=== PATIENT | female | born 1970 | race Caucasian/White ===

== ENCOUNTER → 2022-10-09 13:43 | Outpatient (BNVA) | payer OTHER, SELFPAY | PROVIDERS: PCP Internal Medicine; Visit Provider Psychiatry & Neurology Neurology | DX: R29.898 Other symptoms and signs involving the musculoskeletal system (principal); R29.810 Facial weakness | CPT/HCPCS: 99202 ==

== ENCOUNTER 2022-12-31 13:43 | Outpatient (AMB) | payer OTHER, SELFPAY ==
--- NOTE | 2022-12-31 13:46 | A.OFFVIS_ITS ---
Intake Vital Signs 12/31/22 13:50 BP 118/78 Blood Pressure Location Rt brachial Position Sitting Pulse 77 Pulse Source Pulse Oximeter Pulse Oximetry (%) 99 Oxygen Delivery Method Room Air Intake Visit Reasons: 2m follow up Left Arm weakness w facial drop-lvm Intake Note: Patient presents for 2 month follow up Allergies pregabalin [From Lyrica] Allergy (Mild, Verified 12/31/22 13:47) Unknown bactrim Allergy (Mild, Uncoded 12/31/22 13:47) Unknown Medication List - Last Reconciled 12/31/22 by Ruba Mclaughlin MD acetaminophen (Tylenol) 325 mg PO QID PRN cetirizine (All Day Allergy (cetirizine)) 10 mg PO DAILY PRN levothyroxine 25 mcg PO DAILY spironolactone 50 mg PO DAILY tramadol 50 mg PO DAILY HPI HPI Comments History of Present Illness Details 51y/o female comes for follow up of left UE pain and weakness of left hand that started Jul 2021. she did not tolerate citalopram and did not start sertraline she stopped magnesium. she could not do the stress test- she felt dizzy . No change in symptoms Her EMG is scheduled for this week. Previous history- She also had left facial weakness lasting 5 minutes. she was evaluated with CT , MRI brain, EMG, Carotid doppler which were unremarkable . she had C spine mRI which showed multilevel deg changes. she sees Dr. Askew for her neck and back pain . she is a poor historian - reports multiple problems. SHe reports headaches 3- 4/week , concussion X 2 ( 2013, 2019), sleep problems, back and neck pain ,dizziness, LBBB ? POTS , generalized weakness, depression, anxiety . 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 she feels she has noticed left side of face droop before , had a TMJ surgery but did not help. she reports numbness in her fingers. she also reports leg cramps at night that wake her up and resolves when she walks around. she was under the care of Dr. Weaver many years ago- she does not remember why she was seeing him she remembers being on cymbalta and was found stealing in a store- was arrested- was thought to be related to cymbalta . she is not under the care of a psychiatrist or a psychologist . she denies any suicidal thoughts. she denies panic attacks. She also reports not tolerating gabapentin, lyrica. [facility] Medical History Anxiety Appendicitis Arthritis Cervical abrasion Cervical spondylosis Chronic headaches Depression Facial droop Fibromyalgia HTN (hypertension) Hyperlipidemia Hypothyroidism Kidney stones Left hand weakness Memory loss Nerve entrapment Shoulder arthralgia Surgical History H/O cervical polypectomy History of History of mandibular surgery Family History Sister Brain cancer Lung cancer Cervical adenocarcinoma Mother Leukemia Heart disease Liver disease Father Heart disease Social History Alcohol intake: current Alcohol intake frequency: holidays/special occasions only Patient Tobacco Use Status: Former Tobacco user Review of Systems Neuro Reports confusion Psych Reports confusion Physical Exam Vital Signs: Last Vital Signs Pulse 77 12/31/22 13:50 BP 118/78 12/31/22 13:50 Pulse Ox 99 12/31/22 13:50 Oxygen Delivery Method Room Air 12/31/22 13:50 Const General: in distress, anxious and confusion Nutritional Appearance: overweight Orientation/consciousness: patient oriented x3 and confusion Limitations: physical limitations Neuro Other: Limited exam due to poor effort by the patient. Weakness of [place] hands Restricted range of motion neck Mallampatti grade 4- she says she had sleep study and was normal General: patient oriented x3 and confusion Cranial nerves: Yes Facial sensation intact/muscles of mastication intact, Yes Normal facial strength present, Yes Midline tongue present and Yes Symmetric palate elevation present Cognition (Neuro): abnormal cognition Gait exam (Neuro): Antalgic gait present Motor exam (neuro): Normal motor muscle tone present throughout Deep tendon reflexes (DTR's): Right triceps reflex intensity grade: 2+, Left triceps reflex intensity grade: 2+, Rt Biceps (C5, C6): 2+, Left biceps reflex intensity grade: 2+, Right brachioradialis reflex intensity grade: 2+, Left brachioradialis reflex intensity grade: 2+, Right patellar reflex intensity grade: 4+ and Left patellar reflex intensity grade: 4+ Coordination: [id number] test normal Psych Affect: Labile affect present and Anxious affect present Assessment & Plan Assessment & Plan (1) Facial droop: Comment: unclear etiology - ? complex migraine ? TMJ spasm Code(s): R29.810 - Facial weakness (2) Left hand weakness: Comment: ? carpal tunnel _ she reports a normal NCS Code(s): R29.898 - Other symptoms and signs involving the musculoskeletal system Plan EMG Left hand Reviewed CT, MRI, doppler and MRI C spine F/u Dr. Askew for back and neck Psychiatry evaluation - patient declines Trial magnesium 400mg qhs Start MVT and b complex F/u cardiology Coding Level of Care Code Est Pt Level 4 (01151) Diagnoses Facial droop R29.810 Left hand weakness R29.898
[2022-12-31 13:50] VITALS: BP 118/78; PULSE 77; O2SAT 99
== END 2022-12-31 14:06 | disposition home or self-care (01) ==
PROVIDERS: Visit Provider Psychiatry & Neurology Neurology
DX: R29.810 Facial weakness (principal); R29.898 Other symptoms and signs involving the musculoskeletal system
CPT/HCPCS: 99214

== ENCOUNTER → 2022-12-31 13:43 | Outpatient (BNVA) | payer OTHER, SELFPAY | PROVIDERS: Visit Provider Psychiatry & Neurology Neurology | DX: R29.810 Facial weakness (principal); R29.898 Other symptoms and signs involving the musculoskeletal system | CPT/HCPCS: 99212 ==